=== PATIENT | female | born 1930 | race Caucasian/White ===

== ENCOUNTER 2017-01-06 08:01 | Outpatient (CLI) | payer MEDICARE ==
[2017-01-06 08:49] LABS: #Basophils 0.2 thou/uL (0.0-0.2); #Eosinphils 0.6 thou/uL (0.0-0.7); #Lymphocytes 1.4 thou/uL (1.20-3.40); #Monocytes 0.5 thou/uL (0.11-0.59); #Neutrophils 4.1 thou/uL (1.40-6.50); %Basophils 2.8 % (0.0-1.0); %Eosinophils 9.1 % (0.0-10.0); %Lymphocytes 20.3 % (21.0-51.0); %Monocytes 7.5 % (0.0-10.0); %Neutrophils 60.2 % (42.0-75.0); Hemoglobin 12.9 g/dL (12.0-16.0); Mean Corpuscular HGB CONC 32.6 g/dL (32.0-36.0); Mean Corpuscular Hemoglobin 29.3 pg (27.0-31.0); Mean Platelet Volume 10.3 fL (7.4-10.4); Platelet Count 142 thou/uL (130-400); RBC Distribution Width 12.1 % (11.5-14.5); Red Blood Cell (RBC) Count 4.38 mill/uL (4.20-5.40); White Blood Cell (WBC) Count 6.9 thou/uL (4.8-10.8)
[2017-01-06 09:06] LABS: ALT (SGPT) 18 U/L (8-55); AST (SGOT) 21 U/L (5-34); Albumin 3.9 g/dL (3.4-4.8); Alkaline Phosphatase 47 U/L (40-150); Anion Gap 13 mmol/L (10-20); BUN (Urea Nitrogen) 16 mg/dL (9.8-20.1); Bilirubin, Direct 0.4 mg/dL (0.1-0.3); Bilirubin, Total 1.1 mg/dL (0.2-1.2); Calc. Creatinine Clearance 0 mL/min (70-130); Calcium 9.3 mg/dL (7.8-10.44); Carbon Dioxide 27 mmol/L (23-31); Cardiac Risk 3.3 (Less than 4.5); Chloride 106 mmol/L (98-107); Cholesterol 163 mg/dl (< 200 Desired); Estimated GFR-MDRD 67; Globulin 3.3 g/dL (2.4-3.5); Glucose 96 mg/dL (83-110); HDL Cholesterol 50 mg/dL (>60 Neg Risk); LDL Cholesterol, Calculated 82 mg/dL; Potassium 4.6 mmol/L (3.5-5.1); Protein, Total 7.2 g/dL (6.0-8.3); Sodium 141 mmol/L (136-145); Triglycerides 153 mg/dL (Less than 150)
[2017-01-06 09:43] LABS: Clarity Clear (Clear); pH, Urine 5.5 (5.0-9.0)
[2017-01-06 09:44] LABS: Bacteria/HPF Rare-Few HPF (None Seen); Bilirubin Negative (Negative); Blood, Urine Trace (Negative); Glucose, Urine (Dipstick) Negative (Negative); Leukocyte Trace (Negative); Nitrite Negative (Negative); Protein, Urine (Dipstick) Negative (Neg-Trace); RBC/HPF 0-3 HPF (0-3); Squamous Epithelial 0-3 HPF (0-3); Urobilinogen 0.2 mg/dL (0.2-1.0); WBC/HPF 0-3 HPF (0-3)
== END 2017-01-06 08:02 | disposition home or self-care (01) ==
LOC: MADLABBHPM 08:01
PROVIDERS: ATTEND Family Medicine
DX: I25.10 Atherosclerotic heart disease of native coronary artery without angina pectoris (principal); E78.5 Hyperlipidemia, unspecified; E03.9 Hypothyroidism, unspecified; I10 Essential (primary) hypertension
CPT/HCPCS: 36415; 80053; 80061; 80076; 81001; 84443; 85025

== ENCOUNTER 2017-01-28 13:35 | Outpatient (CLI) | payer MEDICARE ==
--- NOTE | 2017-01-28 15:58 | RAD ---
RADIOGRAPH CHEST 2 VIEWS: Date: 01-28-17 Time: 1:34 p.m. HISTORY: 86-year-old female with dyspnea. COMPARISON: 08-05-16 FINDINGS: There is somewhat severe bilateral hyperinflation consistent with COPD. There is a prosthetic aortic valve. There are sternotomy wires. No pleural effusion or pneumothorax. Irregular, chronic soft tis debby density capping the apex of the right lung with broad base against the right apical pleural surf efrain. Interstitial densities have now developed at the bilateral lower lung zones. In some areas, the se are confluent into airspace densities. No cardiomegaly. Milder left apical pleural thickening. IMPRESSION: 1. New bilateral mixed interstitial and alveolar (mostly interstitial) infiltrates in the bilateral lower lung zones. CT may be useful for further evaluation. 2. Emphysema. 3. Prosthetic aortic valve. [facility] POS: [facility]
== END 2017-01-28 13:36 | disposition home or self-care (01) ==
LOC: MADRAD 13:35
PROVIDERS: ATTEND Family Medicine
DX: R06.02 Shortness of breath (principal); J43.9 Emphysema, unspecified; Z95.2 Presence of prosthetic heart valve
CPT/HCPCS: 71020

== ENCOUNTER 2017-01-28 15:27 | Inpatient (IN) | payer MEDICARE ==
[~2017-01-28 15:27] MED LIST: Sodium Chloride 0.9% 1,000 ML BAG ONE
[2017-01-28 15:58] VITALS: BMI 20.9
[2017-01-28] MEDS: Sodium Chloride 0.9% 1,000 ML IV SCH (16:14)
[2017-01-28] MEDS: cefTRIAXone\\ROCEPHIN 1 GM in Sodium Chloride 0.9% 100 ML IVPB SCH (16:15)
[2017-01-28] MEDS ORDERED: Acetaminophen 325 MG TAB PO PRN (17:33)
[2017-01-28 17:38] LABS: ALT (SGPT) 127 U/L (8-55); AST (SGOT) 138 U/L (5-34); Alkaline Phosphatase 95 U/L (40-150); Anion Gap 16 mmol/L (10-20); BUN (Urea Nitrogen) 29 mg/dL (9.8-20.1); Bilirubin, Total 0.7 mg/dL (0.2-1.2); Calc. Creatinine Clearance 44 mL/min (70-130); Calcium 8.9 mg/dL (7.8-10.44); Carbon Dioxide 22 mmol/L (23-31); Chloride 102 mmol/L (98-107); Estimated GFR-MDRD 65; Glucose 111 mg/dL (83-110); Potassium 3.7 mmol/L (3.5-5.1); Sodium 136 mmol/L (136-145)
[2017-01-28] MEDS: Enoxaparin Sodium 30 MG/0.3 ML SYRINGE SC SCH (18:05)
[2017-01-28 18:25] LABS: Band 4 % (5-11); Hemoglobin 11.1 g/dL (12.0-16.0); Lymphocytes 9 % (21-51); MDiff Complete? YES; Mean Corpuscular HGB CONC 32.5 g/dL (32.0-36.0); Mean Corpuscular Hemoglobin 28.7 pg (27.0-31.0); Mean Corpuscular Volume 88.5 fl (81.0-99.0); Mean Platelet Volume 8.6 fL (7.4-10.4); Monocytes 7 % (0-10); Neutrophil 80 % (42-75); PLT Morphology Comment Appears Adequate; Platelet Count 187 thou/uL (130-400); RBC Distribution Width 12.4 % (11.5-14.5); Red Blood Cell (RBC) Count 3.87 mill/uL (4.20-5.40); White Blood Cell (WBC) Count 13.9 thou/uL (4.8-10.8)
[2017-01-28] MEDS: guaiFENesin ER 600 MG TAB PO SCH (20:29)
[2017-01-28] MEDS: Montelukast Sodium 10 mg Tablet PO SCH (20:29)
[2017-01-28] MEDS: Metoprolol Tartrate 50 MG TAB PO SCH (20:29)
--- NOTE | 2017-01-29 01:30 | HP ---
CHIEF COMPLAINT: Short of breath. HISTORY OF PRESENT ILLNESS: The patient is an 86-year-old white female who has a history of hyperte nsion, asthma, aortic stenosis, for which she underwent a prosthetic valve replacement in 2012. She also has coronary artery disease that is very mild found on heart cath in July 2012 for which s he is asymptomatic. She also has hypothyroidism. The patient presented to my office on the day of admission with her son, Nimesh, complaining that she h ad been sick for the last 5 days. She had developed a lot of head congestion and cough productive o f brownish sputum. She felt short of breath particularly with activity. Her family took her to see Ears, Nose and Throat doctor because they thought she look sick. She was not running fever, but wa s found to have a lot of head congestion and Dr. Tapia, Ears, Nose and Throat physician felt she has a bad sinus infection. He started her on Omnicef twice today for 10 days. She told her chest was clear, but he encouraged her to use her inhaler for asthma. Since that time, the patient has not go t any better other than the head congestion is a little better. She states that she still feels con gested and her cough is still spitting up, some brown discolor phlegm until short of breath particul isauro with any exertion, but also she states she feels a little short of breath just sitting still. She eventually can get comfortable lying down. She thinks she might have a little low-grade fever. PAST MEDICAL HISTORY: The patient has hypertension, hyperlipidemia, hypothyroidism, severe aortic s tenosis for which she underwent a bioprosthetic valve replacement on 07/27/2012 and since then she h as done very well. Her last echocardiogram on 11/10/2015 showed an ejection fraction of 60%-65%. T he patient also has very mild coronary artery disease, had heart catheterization on 07/23/2012. She was found to have very mild plaquing nonstenotic in the distal LAD. The patient has hypothyroidism , asthma, and osteoporosis with evidence of kyphosis in her thoracic spine and loss of height. The patient has been treated with past for gout. She is a 2, para 2. She has been anemic and r equired transfusion in 2012. The patient has had a ERIC-BSO in . She has had breast biopsies i n the past that have been negative. The patient has a colonoscopy in 1994, has had nasal polyp roxana lyndon. She has tonsillectomy and adenoidectomy. The patient had EGD with biopsy and sigmoidoscopy in 1997 negative. The patient had some mild sinus tachycardia which she has been treated with metopro lol. PRESENT MEDICATIONS: Lisinopril 20 mg one daily, Singulair 10 mg daily, Xopenex one inhalation ever y 4 hours as needed, aspirin 325 mg daily, metoprolol succinate extended release 50 mg twice today, amlodipine 5 mg daily, levothyroxine 88 mcg daily, and simvastatin 20 mg daily. ALLERGIES: PENICILLIN. The patient has taken cephalosporins in the past without problems. REVIEW OF SYSTEMS: Constitutional: The patient state she thinks she may have has a little fever ov er the last few days. She has not felt good. She has not had her usual energy. Head and neck: Th e patient had some head congestion, it seems to be better. She is breathing better to her nose. Mo uth and throat: No complaints. Cardiovascular: No chest pain. Pulmonary: See present illness. GI: The patient states she has not had much of an appetite. She has not been eating very much. Sh e is drinking very much. : No complaints. ADLS: The patient is independent of all her ADLs and all her instrumental ADLs. HABITS: Alcohol, none. Tobacco, none. SOCIAL HISTORY: The patient is . The patient lives independently. Has family that can assist her if need be. CODE STATUS: FULL CODE. PHYSICAL EXAMINATION: GENERAL: Asthenic built 86-year-old white female who is sitting in a chair, appears dyspneic. VITAL SIGNS: Her temperature is 100.4, pulse 83, respirations 18, O2 saturation 92% on room air, bl ood pressure 119/58, and her weight is 122 pounds. HEENT: Head normocephalic and atraumatic. Eyes, pupils are equal, round, reactive. Ears, TMs are clear. Nose, is pale and edematous. Mouth and throat, there is no erythema. No lesions. No tonsi ls seen. NECK: Carotids are equal and strong. No bruits. Thyroid not enlarged. LUNGS: The patient has moderate breath sounds with expiratory wheeze and rhonchi. Did not hear any rales. HEART: Regular rate, rate is slightly elevated. There was no murmur. ABDOMEN: Nontender. EXTREMITIES: No edema. NEUROLOGIC: The patient is alert, oriented x3 with no focal weakness. BACK: The patient has marked kyphosis. DIAGNOSTIC DATA: Chest x-ray was performed and showed the heart size to be normal. The patient has hyperinflation of her lungs. The patient has evidence of prosthetic aortic valve and there is evid ence of sternotomy wires. There are no pleural effusions or pneumothorax. The patient has extensiv e interstitial scarring and also increased interstitial densities particularly in the lower lobes th at also present on lateral view. IMPRESSION: 1. Bilateral interstitial pneumonia. 2. Asthma with acute exacerbation. 3. Hypertension. 4. Aortic stenosis, severe. A. Status post aortic valve replacement with a prosthetic valve on 07/27/2012. B. Last echocardiogram on 11/10/2015 showed an ejection fraction of 60%-65%. 5. Coronary artery disease. A. Heart cath on 07/23/2012 showed very mild plaque, nonstenotic involving the distal LAD. B. Asymptomatic. 6. Hypothyroidism. 7. History of asthma. 8. Hyperlipidemia. 9. Osteoporosis. A. Complicated by marked kyphotic thoracic spine with loss of height. PLAN: The patient has been admitted to the hospital where she will be placed on supplemental O2. B lood cultures have been obtained and general admission lab work obtained. The patient will be cauti ously hydrated because she has not been eating well or taking fluids well. Start the patient on IV antibiotics using Levaquin and also on Rocephin. Additionally, we will place the patient on methylp rednisolone IV and nebulization treatments with DuoNebs. This patient will be placed on Lovenox for DVT prophylaxis.
[2017-01-29] MEDS: Sodium Chloride 0.9% 1,000 ML IV SCH ×2 (05:15→23:05)
[2017-01-29] MEDS: Levothyroxine Sodium 88 MCG TAB PO SCH (05:16)
[2017-01-29 05:55] LABS: #Basophils 0.1 thou/uL (0.0-0.2); #Lymphocytes 0.4 thou/uL (1.20-3.40); #Monocytes 0.4 thou/uL (0.11-0.59); #Neutrophils 10.2 thou/uL (1.40-6.50); %Basophils 0.6 % (0.0-1.0); %Eosinophils 0.1 % (0.0-10.0); %Lymphocytes 3.9 % (21.0-51.0); %Monocytes 3.8 % (0.0-10.0); %Neutrophils 91.6 % (42.0-75.0); Hemoglobin 10.3 g/dL (12.0-16.0); Mean Corpuscular HGB CONC 33.2 g/dL (32.0-36.0); Mean Corpuscular Hemoglobin 29.4 pg (27.0-31.0); Mean Corpuscular Volume 88.8 fl (81.0-99.0); Mean Platelet Volume 8.7 fL (7.4-10.4); Platelet Count 178 thou/uL (130-400); RBC Distribution Width 12.3 % (11.5-14.5); Red Blood Cell (RBC) Count 3.48 mill/uL (4.20-5.40); White Blood Cell (WBC) Count 11.2 thou/uL (4.8-10.8)
[2017-01-29 06:00] LABS: Anion Gap 13 mmol/L (10-20); BUN (Urea Nitrogen) 24 mg/dL (9.8-20.1); Calc. Creatinine Clearance 50 mL/min (70-130); Calcium 8.6 mg/dL (7.8-10.44); Carbon Dioxide 22 mmol/L (23-31); Chloride 105 mmol/L (98-107); Estimated GFR-MDRD 76; Glucose 151 mg/dL (83-110); Potassium 3.8 mmol/L (3.5-5.1); Sodium 136 mmol/L (136-145)
[2017-01-29] MEDS ORDERED: Calcium Carbonate 500 MG ChewTAB PO PRN (08:11)
--- NOTE | 2017-01-29 08:49 | HP ---
SUBJECTIVE: The patient said she feels much better today. Her breathing is better. Her cough is l ess. She said she feels remarkably better. The patient said she rested well. She is having a graham le indigestion. Yesterday, she was started on pantoprazole at home. She says she occasionally take s at home. OBJECTIVE: GENERAL: The patient is lying in bed with the head elevated. She looks very comfortable. The dysp yobani that was present at rest yesterday has resolved. She is talkative without getting out of breath . VITAL SIGNS: Shows a temperature of 98, pulse 99, respirations 18. Her O2 sats 98% on 2 liters, bl ood pressure 123/59. Her weight is 122. LUNGS: Have excellent breath sounds. Lungs are clear except for an occasional very slight expirato ry wheeze heard over the right posterior chest. There were no rales present and rhonchi have resolv ed. HEART: Regular rate. EXTREMITIES: No edema. LABORATORY DATA: Admission H\T\H are 11.1 and 34.3 with white cell count of 13,900 with 80% segs, 9 % lymphocytes. This morning, H\T\H is 10.3 and 30.9 with a white blood cell count down to 11,200 wi th 92% segs, 4% lymphocytes, and platelet count of 178,000. Her sodium 136, potassium 3.8, BUN 24, creatinine 0.73, GFR 73. FBS 151. On admission, her sodium 136, potassium 3.7. Her BUN was 29, cr eatinine 0.83, GFR 65, glucose 111. Her liver enzymes on admission were little elevated with AST 13 8, ALT of 127, total bilirubin 0.7, alkaline phosphatase 95. TSH was 0.7. ASSESSMENT: 1. Bilateral interstitial pneumonia. A. Improved. 2. Asthma with acute exacerbation, improved with minimal wheezing. 3. Hypertension, controlled. 4. Aortic stenosis, severe. A. Status post aortic valve replacement with prosthetic valve on 07/27/2012. B. Last echocardiogram on 11/10/2015 showed ejection fraction of 60%-65%. 5. Coronary artery disease, a heart catheterization on 07/23/2012 showed very mild plaque nonstenot ic involving the distal LAD. B. Asymptomatic. 6. Hypothyroidism. 7. History of asthma. 8. Hyperlipidemia. 9. Osteoporosis. A. Complicated by marked kyphotic thoracic spine with loss of height. 10. Dehydration. A. Manifest with mild elevation of BUN and creatinine. B. Improved with an improvement in GFR from 65-76 and drop in BUN from 29-24. 11. Abnormal liver function studies, hepatocellular injury. A. Etiology, possibly from the simvastatin and/or the acute illness. PLAN: Overall, the patient looks much better. We will continue her IV steroids, antibiotics and IV fluids. We will advance activities within her capability. Continue the supplemental O2. We will stop the simvastatin and follow the liver function studies. We will add Tums that she uses at home for indigestion.
[2017-01-29] MEDS ORDERED: Simvastatin 20 MG TAB PO SCH (09:00)
[2017-01-29 09:07] LABS: ALT (SGPT) 143 U/L (8-55); AST (SGOT) 129 U/L (5-34); Alkaline Phosphatase 100 U/L (40-150); Anion Gap 17 mmol/L (10-20); BUN (Urea Nitrogen) 24 mg/dL (9.8-20.1); Bilirubin, Total 0.5 mg/dL (0.2-1.2); Calc. Creatinine Clearance 50 mL/min (70-130); Calcium 8.9 mg/dL (7.8-10.44); Carbon Dioxide 20 mmol/L (23-31); Chloride 104 mmol/L (98-107); Estimated GFR-MDRD 75; Glucose 167 mg/dL (83-110); Potassium 3.5 mmol/L (3.5-5.1); Sodium 137 mmol/L (136-145)
[2017-01-29] MEDS: guaiFENesin ER 600 MG TAB PO SCH ×2 (09:28→20:46)
[2017-01-29] MEDS: Lisinopril 10 MG TAB PO SCH (09:29)
[2017-01-29] MEDS: Aspirin 325 mg Enteric Coated Tablet PO SCH (09:29)
[2017-01-29] MEDS: Metoprolol Tartrate 50 MG TAB PO SCH ×2 (09:29→20:46)
[2017-01-29 15:03] LABS: Bilirubin Negative (Negative); Blood, Urine Trace (Negative); Clarity Cloudy (Clear); Glucose, Urine (Dipstick) Negative (Negative); Leukocyte Negative (Negative); Nitrite Negative (Negative); Protein, Urine (Dipstick) 30 mg/dL (Neg-Trace); Specific Gravity, Urine 1.025 (1.005-1.030); Urobilinogen 0.2 mg/dL (0.2-1.0); pH, Urine 5.5 (5.0-9.0)
[2017-01-29 15:04] LABS: Bacteria/HPF Rare-Few HPF (None Seen); Crystals/HPF 4+ AMORPH URATES HPF (Negative); RBC/HPF 0-3 HPF (0-3); Squamous Epithelial 0-3 HPF (0-3); WBC/HPF None Seen HPF (0-3)
[2017-01-29] MEDS: cefTRIAXone\\ROCEPHIN 1 GM in Sodium Chloride 0.9% 100 ML IVPB SCH (15:37)
[2017-01-29] MEDS ORDERED: Sodium Chloride 0.9% 1,000 ML BAG ONE (17:00)
[2017-01-29] MEDS: Enoxaparin Sodium 30 MG/0.3 ML SYRINGE SC SCH (18:12)
[2017-01-29] MEDS: Montelukast Sodium 10 mg Tablet PO SCH (20:46)
[2017-01-30 05:33] LABS: #Basophils 0.1 thou/uL (0.0-0.2); #Lymphocytes 0.5 thou/uL (1.20-3.40); #Monocytes 0.8 thou/uL (0.11-0.59); #Neutrophils 15.3 thou/uL (1.40-6.50); %Basophils 0.3 % (0.0-1.0); %Monocytes 4.6 % (0.0-10.0); Hemoglobin 10.5 g/dL (12.0-16.0); INR-International Normal Ratio 1.2; Mean Corpuscular Volume 88.6 fl (81.0-99.0); Mean Platelet Volume 8.5 fL (7.4-10.4); Platelet Count 212 thou/uL (130-400); Prothrombin Time 15.7 SEC (12.0-14.7); RBC Distribution Width 12.3 % (11.5-14.5); Red Blood Cell (RBC) Count 3.38 mill/uL (4.20-5.40); White Blood Cell (WBC) Count 16.6 thou/uL (4.8-10.8)
[2017-01-30] MEDS: Levothyroxine Sodium 88 MCG TAB PO SCH (06:08)
[2017-01-30] MEDS: Lisinopril 10 MG TAB PO SCH (08:31)
[2017-01-30] MEDS: guaiFENesin ER 600 MG TAB PO SCH ×2 (08:31→20:35)
[2017-01-30] MEDS: Metoprolol Tartrate 50 MG TAB PO SCH ×2 (08:32→20:35)
[2017-01-30] MEDS: Sodium Chloride 0.9% 1,000 ML IV SCH ×3 (08:32→17:57)
[2017-01-30] MEDS: Aspirin 325 mg Enteric Coated Tablet PO SCH (08:32)
--- NOTE | 2017-01-30 08:37 | PRG ---
DATE OF SERVICE: 01/30/2017 SUBJECTIVE: The patient said she slept good last night. She is feeling better. She said yesterday she was still having just a little wheezing. She did sit up for a while. She said she is still we ak and just going to the bathroom exhausts her. OBJECTIVE: The patient is sitting up in bed. She is alert, looks very comfortable and in no distre ss. Her vital signs show a temperature of 97.8, pulse is 89, respirations are 20, O2 sat 97% on 2 l iters, blood pressure 121/59. Her output, the patient is at 1025 mL of urine output over the last 2 4 hours. Her lungs, the patient has good breath sounds. The patient has an occasional very slight wheeze on forced expiration and there are some rhonchi over the right posterior chest, these are min imal. Overall, the chest is sounding better. Heart, regular rate. Extremities: No edema. Lab shows an H\T\H of 10.5 and 29.9, white cell count 16,600 with 92% segs, 212,000 platelets, incre ased leukocytosis, probably secondary to the effect of the steroids. The sodium 137, potassium 3.5, glucose 167, BUN 24, creatinine 0.75, AST 129, ALT 143, total bilirubin 0.5, alkaline phosphatase 1 00. ASSESSMENT: 1. Bilateral interstitial pneumonia. A. Improved. 2. Asthma with acute exacerbation. A. Improving, but still some wheezes or rhonchi on expiration. 3. Hypertension, controlled. 4. Aortic stenosis, severe. A. Status post aortic valve replacement with prosthetic valve on 07/27/2012. B. Last echocardiogram on 11/10/2015 showed ejection fraction 60-65%. 5. Coronary artery disease. A. Heart catheterization on 07/23/2012 showed very mild plaque that is nonstenotic involving the dis renato LAD. B. Asymptomatic. 6. Hypothyroidism. 7. History of asthma. 8. Hyperlipidemia. 9. Osteoporosis. A. Complicated by marked kyphotic thoracic spine with loss of height. 10. Dehydration. A. Improved. 11. Abnormal liver function studies, hepatocellular injury. A. Suspect related to the simvastatin and/or acute illness, stable. 12. Generalized weakness. PLAN: Will reduce the patient's fluids to 50 mL per hour. Continue the IV steroids. Will have Phy sical Therapy begin working with her.
[2017-01-30 09:09] LABS: Chloride 104 mmol/L (98-107); Sodium 133 mmol/L (136-145)
[2017-01-30 09:39] LABS: ALT (SGPT) 193 U/L (8-55); AST (SGOT) 158 U/L (5-34); Albumin 2.7 g/dL (3.4-4.8); Alkaline Phosphatase 84 U/L (40-150); Anion Gap 14 mmol/L (10-20); BUN (Urea Nitrogen) 22 mg/dL (9.8-20.1); Bilirubin, Total Less than 0.3 mg/dL (0.2-1.2); Calc. Creatinine Clearance 51 mL/min (70-130); Calcium 7.7 mg/dL (7.8-10.44); Carbon Dioxide 21 mmol/L (23-31); Estimated GFR-MDRD 77; Globulin 2.6 g/dL (2.4-3.5); Glucose 150 mg/dL (83-110); Protein, Total 5.3 g/dL (6.0-8.3)
[2017-01-30] MEDS: cefTRIAXone\\ROCEPHIN 1 GM in Sodium Chloride 0.9% 100 ML IVPB SCH (15:37)
[2017-01-30] MEDS: Potassium Chloride 10 MEQ TAB PO SCH (17:04)
[2017-01-30] MEDS: Enoxaparin Sodium 30 MG/0.3 ML SYRINGE SC SCH (18:02)
[2017-01-30] MEDS: Montelukast Sodium 10 mg Tablet PO SCH (20:35)
[2017-01-31] MEDS: Levothyroxine Sodium 88 MCG TAB PO SCH (05:17)
[2017-01-31 05:22] LABS: #Basophils 0.2 thou/uL (0.0-0.2); #Lymphocytes 0.8 thou/uL (1.20-3.40); #Monocytes 0.6 thou/uL (0.11-0.59); #Neutrophils 14.5 thou/uL (1.40-6.50); %Lymphocytes 4.8 % (21.0-51.0); %Monocytes 3.7 % (0.0-10.0); %Neutrophils 90.6 % (42.0-75.0); Hemoglobin 10.3 g/dL (12.0-16.0); Mean Corpuscular HGB CONC 32.8 g/dL (32.0-36.0); Mean Corpuscular Hemoglobin 29.5 pg (27.0-31.0); Mean Corpuscular Volume 89.7 fl (81.0-99.0); Mean Platelet Volume 8.2 fL (7.4-10.4); Platelet Count 247 thou/uL (130-400); RBC Distribution Width 12.8 % (11.5-14.5)
[2017-01-31] MEDS: Potassium Chloride 10 MEQ TAB PO SCH (08:02)
--- NOTE | 2017-01-31 08:45 | PRG ---
DATE OF SERVICE: 01/31/2017 SUBJECTIVE: The patient said she feels much better today. She is not having any trouble with her b reathing. Her cough is minimal. She still has a little sputum production, but this is lightening u p. She slept very good last night. She walked further and seemed to do better and was not out of b reath with walking. OBJECTIVE: GENERAL APPEARANCE: The patient is sitting up in bed. She is alert and looks to be very comfortabl e and in no distress. VITAL SIGNS: Her blood pressure is 121/61, O2 sat 97% on 2 liters, respirations 18, pulse 96, tempe rature 97.7. LUNGS: Have excellent breath sounds. There were no rales. There are no rhonchi. On occasion, the re is a very slight short wheeze that is present, but this is only intermittent. Overall, the lungs are clear. HEART: Regular rate. LABORATORY DATA: Shows H\T\H of 10.3 and 31.4, white cell count 16,000, 91% segs, 5% lymphocytes, a nd platelet count of 247,000. Her sodium is 133, potassium 4. Her BUN 22, creatinine 0.72. Her gl ucose is 150. AST is 158 and ALT 193. Total bilirubin less than 0.3, alkaline phosphatase 84, albu min 2.7. Her blood cultures have no growth x2. ASSESSMENT: 1. Bilateral interstitial pneumonia. A. Continued improvement. 2. Asthma with acute exacerbation, improving. 3. Hypertension. 4. Aortic stenosis, severe. A. Status post aortic valve replacement with prosthetic valve on 07/27/2012. B. Last echocardiogram on 11/10/2015 showed an ejection fraction of 60%-65%. 5. Coronary artery disease. A. Heart catheterization on 07/23/2012 showed very mild plaque that was stenotic involving the dist al LAD. B. Asymptomatic. 6. Hypothyroidism. 7. History of asthma. 8. Hyperlipidemia. 9. Osteoporosis. A. Complicated by marked kyphotic thoracic spine with loss of height. 10. Dehydration. A. Resolved. 11. Abnormal liver function studies from hepatocellular injury. Suspect from the initial infection that is stable, statin could also be a contributor. 12. Generalized weakness. PLAN: We will discontinue the IV fluids. We will discontinue potassium supplementation. Continue physical therapy and continue the IV antibiotics. We will discontinue the methylprednisolone IV and place her on oral steroids.
[2017-01-31 08:55] LABS: Anion Gap 10 mmol/L (10-20)
[2017-01-31 09:10] LABS: BUN (Urea Nitrogen) 25 mg/dL (9.8-20.1); Calc. Creatinine Clearance 49 mL/min (70-130); Carbon Dioxide 25 mmol/L (23-31); Chloride 108 mmol/L (98-107); Potassium 4.2 mmol/L (3.5-5.1); Sodium 139 mmol/L (136-145)
[2017-01-31 09:11] LABS: ALT (SGPT) 157 U/L (8-55); AST (SGOT) 77 U/L (5-34); Albumin 2.7 g/dL (3.4-4.8); Alkaline Phosphatase 78 U/L (40-150); Bilirubin, Total 0.3 mg/dL (0.2-1.2); Calcium 8.5 mg/dL (7.8-10.44); Estimated GFR-MDRD 74; Globulin 3.2 g/dL (2.4-3.5); Glucose 109 mg/dL (83-110); Protein, Total 5.9 g/dL (5.8-8.1)
[2017-01-31] MEDS: Aspirin 325 mg Enteric Coated Tablet PO SCH (09:19)
[2017-01-31] MEDS: guaiFENesin ER 600 MG TAB PO SCH ×2 (09:19→20:54)
[2017-01-31] MEDS: Lisinopril 10 MG TAB PO SCH (09:20)
[2017-01-31] MEDS: Metoprolol Tartrate 50 MG TAB PO SCH ×2 (09:20→20:53)
[2017-01-31] MEDS: cefTRIAXone\\ROCEPHIN 1 GM in Sodium Chloride 0.9% 100 ML IVPB SCH (15:48)
[2017-01-31] MEDS: Enoxaparin Sodium 30 MG/0.3 ML SYRINGE SC SCH (18:01)
[2017-01-31] MEDS: Montelukast Sodium 10 mg Tablet PO SCH (20:53)
[2017-02-01 05:22] LABS: Hemoglobin 10.4 g/dL (12.0-16.0); Mean Corpuscular HGB CONC 32.7 g/dL (32.0-36.0); Mean Corpuscular Hemoglobin 29.1 pg (27.0-31.0); Mean Corpuscular Volume 88.8 fl (81.0-99.0); Mean Platelet Volume 7.7 fL (7.4-10.4); Platelet Count 197 thou/uL (130-400); RBC Distribution Width 12.3 % (11.5-14.5); Red Blood Cell (RBC) Count 3.59 mill/uL (4.20-5.40); White Blood Cell (WBC) Count 11.9 thou/uL (4.8-10.8)
[2017-02-01 05:26] LABS: %Eosinophils 0.5 % (0.0-10.0); %Lymphocytes 10.8 % (21.0-51.0); %Monocytes 6.7 % (0.0-10.0); %Neutrophils 80.2 % (42.0-75.0)
[2017-02-01 05:27] LABS: #Basophils 0.2 thou/uL (0.0-0.2); #Eosinphils 0.1 thou/uL (0.0-0.7); #Monocytes 0.8 thou/uL (0.11-0.59); #Neutrophils 9.5 thou/uL (1.40-6.50); %Basophils 1.8 % (0.0-1.0); Anisocytosis SLIGHT = 6-15 cells (100X) (0-5/hpf); Band 4 % (5-11); Eosinophils 3 % (0-10); Hypochromia SLIGHT = 6-15 cells (100X) (0-5/hpf); Lymphocytes 17 % (21-51); Monocytes 8 % (0-10); Neutrophil 68 % (42-75); Poikilocytosis SLIGHT = 6-15 cells (100X) (0-5/hpf)
[2017-02-01 05:28] LABS: PLT Morphology Comment Appears Adequate
[2017-02-01 05:29] LABS: MDiff Complete? YES; Manual Diff?? YES
[2017-02-01] MEDS: Levothyroxine Sodium 88 MCG TAB PO SCH (06:19)
[2017-02-01] MEDS ORDERED: predniSONE 20 MG TAB PO SCH (08:00)
[2017-02-01] MEDS: guaiFENesin ER 600 MG TAB PO SCH (08:49)
[2017-02-01] MEDS: Lisinopril 10 MG TAB PO SCH (08:49)
[2017-02-01] MEDS: Aspirin 325 mg Enteric Coated Tablet PO SCH (08:49)
[2017-02-01] MEDS: Metoprolol Tartrate 50 MG TAB PO SCH (08:50)
[2017-02-01 08:51] VITALS: BP 129/60; TEMP 98.1
--- NOTE | 2017-02-01 11:40 | PRG ---
DATE OF SERVICE: 02/01/2017 SUBJECTIVE: The patient says she feels so much better. She walked yesterday with therapy a little further. She said she has been going with her options yesterday some and also this morning. She sa id she is not coughing like she was. She has been up going to the bathroom and has not been short o f breath like she had been. Overall, she feels better. OBJECTIVE: GENERAL: The patient is sitting up in a chair, looks comfortable, in no distress. VITAL SIGNS: Temperature 98.1, pulse 97, blood pressure 121/61, respirations 18, O2 sat on room air 92%. Earlier was 95% on room air. LUNGS: Her lungs were clear except for some mild rhonchi over the right posterior base. There are excellent breath sounds. I did not hear any wheezes. Heart, regular rate. EXTREMITIES: No edema. LABORATORY DATA: Shows an H and H of 10.4 and 31.9, white cell count down to 11,900 with 68% segs, 17% lymphocytes, and a platelet count of 197,000. Her comprehensive metabolic panel from 01/31/2017 showed sodium 139, potassium 4.2, BUN 25, creatinine 0.75. The AST has dropped from a high of 158 to 77, ALT has dropped from 193 to 157. Blood cultures no growth x2. ASSESSMENT: 1. Bilateral interstitial pneumonia. A. Continued improvement. 2. Asthma with acute exacerbation, improving. 3. Hypertension, controlled. 4. Aortic stenosis, severe. A. Status post aortic valve replacement with prosthetic valve on 07/27/2012. B. Last echocardiogram on 11/10/2015 showed ejection fraction of 60 to 65%. 5. Coronary artery disease. A. Heart catheterization on 07/23/2012 showed very mild plaque that was nonstenotic involving the d istal left anterior descending. B. Asymptomatic. 6. Hypothyroidism. 7. History of asthma. 8. Hyperlipidemia. 9. Osteoporosis. A. Complicated by marked kyphotic thoracic spine with loss of height. 10. Dehydration, resolved. 11. Abnormal liver function studies from hepatocellular injury. A. Etiology probably secondary to the acute illness and the effect of the statin drugs. B. Improved. 12. Generalized weakness, gradually improving. PLAN: Overall, the patient continues to improve. We will move patient to Extended Care for continu ation of IV antibiotics for another couple of days and then we will shift to oral antibiotics. Phys ical therapy will work with her in extended care to help improve her general strength and functional capability.
[2017-02-01 15:57] LABS: HBSAg Index 0.22 S/CO (0-0.99); Hep A IgM AB Non-Reactive (NonReactive); Hep A IgM S/CO 0.15 S/CO (0-0.79); Hep B Surf Ag Non-Reactive S/CO (NonReactive); Hep C IgG Ab Non-Reactive (NonReactive); Hep C Index 0.24 S/CO (0-0.79); Hepatitis B Core IGM Abs Non-Reactive (NonReactive)
== END 2017-02-01 10:51 | DRG 197 ==
LOC: MADMS 15:27
PROVIDERS: ADMIT Family Medicine; ATTEND Family Medicine
DX: J84.9 Interstitial pulmonary disease, unspecified (principal); J45.901 Unspecified asthma with (acute) exacerbation; I35.0 Nonrheumatic aortic (valve) stenosis; E86.0 Dehydration; Z95.2 Presence of prosthetic heart valve; I25.10 Atherosclerotic heart disease of native coronary artery without angina pectoris; E03.9 Hypothyroidism, unspecified; E78.5 Hyperlipidemia, unspecified; I10 Essential (primary) hypertension; M81.0 Age-related osteoporosis without current pathological fracture; M40.294 Other kyphosis, thoracic region; R94.5 Abnormal results of liver function studies
CPT/HCPCS: 36415; 71020; 80048; 80053; 80074; 81001; 84443; 85025; 85610; 87040; 94640; G8978-GP-CJ; G8979-GP-CI; J0696; J1650; J1956; J2920; J7050; J7506; J7620

== ENCOUNTER 2017-02-01 10:44 | Inpatient (IN) | payer MEDICARE ==
[2017-02-01] MEDS ORDERED: Calcium Carbonate 500 MG ChewTAB PO PRN (11:02)
[2017-02-01] MEDS ORDERED: Acetaminophen 325 MG TAB PO PRN (11:02)
[2017-02-01 11:16] VITALS: BMI 20.9
[2017-02-01] MEDS: cefTRIAXone\\ROCEPHIN 1 GM in Sodium Chloride 0.9% 100 ML IVPB SCH (15:20)
[2017-02-01] MEDS ORDERED: cefTRIAXone\\ROCEPHIN 1 GM VIAL IVPB SCH (16:00)
[2017-02-01] MEDS ORDERED: Levofloxacin 500 mg/D5W 100 ml Premix Bag IVPB SCH (18:00)
[2017-02-01] MEDS: Enoxaparin Sodium 30 MG/0.3 ML SYRINGE SC SCH (18:01)
[2017-02-01] MEDS: guaiFENesin ER 600 MG TAB PO SCH (20:36)
[2017-02-01] MEDS: Metoprolol Tartrate 50 MG TAB PO SCH (20:37)
[2017-02-01] MEDS: Montelukast Sodium 10 mg Tablet PO SCH (20:37)
[2017-02-02] MEDS: Levothyroxine Sodium 88 MCG TAB PO SCH (08:44)
[2017-02-02] MEDS: predniSONE 20 MG TAB PO SCH (08:45)
[2017-02-02] MEDS: Aspirin 325 mg Enteric Coated Tablet PO SCH (08:46)
[2017-02-02] MEDS: guaiFENesin ER 600 MG TAB PO SCH ×2 (08:46→20:39)
[2017-02-02] MEDS: Lisinopril 10 MG TAB PO SCH (08:46)
[2017-02-02] MEDS: Metoprolol Tartrate 50 MG TAB PO SCH ×2 (08:46→20:39)
--- NOTE | 2017-02-02 10:40 | PRG ---
DATE OF SERVICE: 02/02/2017 SUBJECTIVE: The patient said she feels a lot better today. She has been up walking around without oxygen and able to do more and feeling more like herself. She said her cough is much better. She s till is spitting up just a minimal amount of phlegm that is clearing in color. OBJECTIVE: GENERAL: The patient is sitting in a chair. She is alert, appears very comfortable and in no distr ess. VITAL SIGNS: Her T-max last night was 99.1; pulse 82-92, blood pressure 167/72, earlier 121/60, res pirations 18, and O2 sat 94% on room air. LUNGS: The patient has some mild expiratory rhonchi over the right posterior chest, otherwise chest clear. HEART: Regular rate. EXTREMITIES: No edema. ASSESSMENT: 1. Bilateral interstitial pneumonia. A. Continued improvement. 2. Asthma with acute exacerbation. A. Improving with no wheezes. 3. Hypertension, controlled. 4. Aortic stenosis, severe. A. Status post aortic valve replacement with prosthetic valve on 07/27/2012. B. Last echocardiogram on 11/10/2015 showed ejection fraction of 60-65%. 5. Coronary artery disease. A. Heart catheterization on 07/23/2012 showed very mild plaque that was nonstenotic involving the d istal left anterior descending. B. Asymptomatic. 6. Hypothyroidism. 7. History of asthma. 8. Hyperlipidemia. 9. Osteoporosis. A. Complicated by marked kyphotic thoracic spine with loss of height. 10. Dehydration, resolved. 11. Abnormal liver function studies from hepatocellular injury. A. Etiology secondary to the acute illness and the effect of the statin drugs. B. Improved. 12. Generalized weakness, improved. PLAN: Continue present care. Continue physical therapy.
--- NOTE | 2017-02-02 11:58 | RAD ---
TWO VIEW CHEST: HISTORY: Followup pneumonia. COMPARISON: 01/28/17. FINDINGS: Opacification in the right apex is again seen and is unchanged. Small bilateral effusions, slightly larger on the left. Interstitial and patchy alveolar changes in the left lung base again noted, although findings appear improved from 01/28/17. Mild vascular engo rgement is again noted. Mild cardiomegaly with postop sternotomy change. The bilateral apical find ings are stable when compared to a film dated July 2016. IMPRESSION: 1. Evidence of improvement in the lung solis when compared to 01/28/17. Interstitial prominence is less pronounced, probably representing some improvement in interstitial edema. There continue to b e some interstitial and alveolar changes in the left lung base which may represent resolving inflamm atory process. Bilateral effusions, slightly larger on the left noted. The left effusion has incre ased since the prior study. 2. Right apical opacification is unchanged in appearance. Left apical pleural thickening is also n oted but to a lesser degree. POS: [facility]
[2017-02-02] MEDS: cefTRIAXone\\ROCEPHIN 1 GM in Sodium Chloride 0.9% 100 ML IVPB SCH (16:18)
[2017-02-02] MEDS: Enoxaparin Sodium 30 MG/0.3 ML SYRINGE SC SCH (17:14)
[2017-02-02] MEDS: Montelukast Sodium 10 mg Tablet PO SCH (20:39)
[2017-02-03 05:51] LABS: #Basophils 0.1 thou/uL (0.0-0.2); #Eosinphils 0.2 thou/uL (0.0-0.7); #Lymphocytes 1.5 thou/uL (1.20-3.40); #Monocytes 0.6 thou/uL (0.11-0.59); #Neutrophils 9.6 thou/uL (1.40-6.50); %Basophils 0.8 % (0.0-1.0); %Eosinophils 1.4 % (0.0-10.0); %Lymphocytes 12.9 % (21.0-51.0); %Monocytes 4.8 % (0.0-10.0); %Neutrophils 80.1 % (42.0-75.0); Hemoglobin 10.9 g/dL (12.0-16.0); Mean Corpuscular HGB CONC 33.3 g/dL (32.0-36.0); Mean Corpuscular Hemoglobin 29.5 pg (27.0-31.0); Mean Corpuscular Volume 88.6 fl (81.0-99.0); Mean Platelet Volume 7.7 fL (7.4-10.4); Platelet Count 238 thou/uL (130-400); RBC Distribution Width 12.3 % (11.5-14.5); Red Blood Cell (RBC) Count 3.68 mill/uL (4.20-5.40)
[2017-02-03 06:00] LABS: ALT (SGPT) 78 U/L (8-55); AST (SGOT) 32 U/L (5-34); Albumin 2.8 g/dL (3.4-4.8); Alkaline Phosphatase 55 U/L (40-150); Anion Gap 10 mmol/L (10-20); BUN (Urea Nitrogen) 16 mg/dL (9.8-20.1); Bilirubin, Total 0.6 mg/dL (0.2-1.2); Calc. Creatinine Clearance 51 mL/min (70-130); Calcium 8.3 mg/dL (7.8-10.44); Carbon Dioxide 31 mmol/L (23-31); Chloride 102 mmol/L (98-107); Estimated GFR-MDRD 77; Globulin 2.8 g/dL (2.4-3.5); Glucose 91 mg/dL (83-110); Potassium 3.7 mmol/L (3.5-5.1); Protein, Total 5.6 g/dL (6.0-8.3); Sodium 139 mmol/L (136-145)
[2017-02-03] MEDS: guaiFENesin ER 600 MG TAB PO SCH ×2 (08:57→21:11)
[2017-02-03] MEDS: predniSONE 20 MG TAB PO SCH (08:57)
[2017-02-03] MEDS: Levothyroxine Sodium 88 MCG TAB PO SCH (08:57)
[2017-02-03] MEDS: Metoprolol Tartrate 50 MG TAB PO SCH ×2 (08:58→21:12)
[2017-02-03] MEDS: Aspirin 325 mg Enteric Coated Tablet PO SCH (08:58)
[2017-02-03] MEDS: Lisinopril 10 MG TAB PO SCH (08:58)
[2017-02-03] MEDS ORDERED: predniSONE 20 MG TAB PO SCH (09:53)
--- NOTE | 2017-02-03 10:31 | PRG ---
DATE OF SERVICE: 02/03/2017 SUBJECTIVE: The patient says she feels a lot better today. Her breathing is better. She is walkin g a little further. She is not coughing. OBJECTIVE: The patient is sitting up in a bedside chair, alert, appears comfortable in no distress. Her temperature 98.1, pulse 88, blood pressure 145/67, respirations 20, O2 sat 96% on room air. H er weight is 122. Her lungs are clear. Heart, regular rate. The chest x-ray shows mild cardiomega ly. The patient has improvement in the basilar infiltrates. There are bilateral pleural effusions, a little more on the left than the right and chronic interstitial changes are present at the apex a nd interstitial markings at the bases looks better. There remains some interstitial and alveolar ch anges of the left lung base. Her labs shows an H\T\H of 10.9 and 32.6, white cell count 12,000 with 80% segs, 13% lymphocytes, and a platelet count of 238. Her glucose 91. Sodium 139, potassium 3.7 , BUN 16, creatinine 0.72. AST has normalized to 32, ALT down to 78 from a high of 193, normal sally line phosphatase and bilirubin. ASSESSMENT: 1. Bilateral interstitial pneumonia. A. Continued improvement. 2. Asthma with acute exacerbation, resolving. 3. Hypertension, controlled. 4. Aortic stenosis, severe. A. 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 B. Last echocardiogram on 11/10/2015 showed ejection fraction of 60-65%. 5. Coronary artery disease. A. Heart catheterization on 07/23/2012 showed mild plaque that was not stenotic involving the dista l left anterior descending artery. B. Asymptomatic. 6. Hypothyroidism. 7. History of asthma. 8. Hyperlipidemia. 9. Osteoporosis. A. Complicated by marked kyphotic spine with loss of height. 10. Dehydration, resolved. 11. Abnormal liver functions studies secondary to hepatocellular injury. A. Etiology secondary to acute illness and the effect of statin drugs. B. Resolving. 12. Generalized weakness, improved. 13. Bilateral pleural effusions that are small, left greater than right and mild cardiomegaly with some interstitial prominence that has improved. A. Etiology probably secondary to the pneumonia and probably from some diastolic dysfunction. PLAN: Will switch the patient to oral antibiotics with Levaquin. Reduced the prednisone to [address] patient on furosemide 40 mg daily. We will arrange for patient later to be reevaluate d by her ux developer, Dr. Murillo.
[2017-02-03] MEDS: Enoxaparin Sodium 30 MG/0.3 ML SYRINGE SC SCH (18:27)
[2017-02-03] MEDS: Montelukast Sodium 10 mg Tablet PO SCH (21:12)
[2017-02-04 05:34] LABS: Anion Gap 10 mmol/L (10-20); BUN (Urea Nitrogen) 18 mg/dL (9.8-20.1); Calc. Creatinine Clearance 54 mL/min (70-130); Calcium 8.3 mg/dL (7.8-10.44); Carbon Dioxide 29 mmol/L (23-31); Chloride 103 mmol/L (98-107); Estimated GFR-MDRD 82; Glucose 97 mg/dL (83-110); Potassium 4.1 mmol/L (3.5-5.1); Sodium 138 mmol/L (136-145)
[2017-02-04] MEDS: Levothyroxine Sodium 88 MCG TAB PO SCH (08:45)
[2017-02-04] MEDS: Lisinopril 10 MG TAB PO SCH (08:45)
[2017-02-04] MEDS: guaiFENesin ER 600 MG TAB PO SCH ×2 (08:46→20:50)
[2017-02-04] MEDS: Metoprolol Tartrate 50 MG TAB PO SCH ×2 (08:46→20:51)
[2017-02-04] MEDS: Furosemide 40 MG TAB PO SCH (08:46)
[2017-02-04] MEDS: Aspirin 325 mg Enteric Coated Tablet PO SCH (08:47)
[2017-02-04] MEDS: Enoxaparin Sodium 30 MG/0.3 ML SYRINGE SC SCH (18:20)
[2017-02-04] MEDS: Montelukast Sodium 10 mg Tablet PO SCH (20:51)
[2017-02-05] MEDS: Metoprolol Tartrate 50 MG TAB PO SCH (08:59)
[2017-02-05] MEDS: Lisinopril 10 MG TAB PO SCH (08:59)
[2017-02-05] MEDS: Levothyroxine Sodium 88 MCG TAB PO SCH (08:59)
[2017-02-05] MEDS: guaiFENesin ER 600 MG TAB PO SCH (08:59)
[2017-02-05] MEDS: Furosemide 40 MG TAB PO SCH (09:00)
[2017-02-05] MEDS: Aspirin 325 mg Enteric Coated Tablet PO SCH (09:00)
[2017-02-05 09:01] VITALS: BP 156/69
[2017-02-05 09:03] VITALS: TEMP 98.1
--- NOTE | 2017-02-05 09:40 | DIS ---
FINAL DIAGNOSES: 1. Bilateral interstitial pneumonia, clinically resolving. 2. Asthma with acute exacerbation, resolving. 3. Hypertension, controlled. 4. Aortic stenosis, severe. A. 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 B. Last echocardiogram on 11/10/2015 showed ejection fraction of 60-65%. 5. Coronary artery disease. A. Heart catheterization on 07/23/2012, showed mild plaque that was not stenotic involving the dista l LAD. B. Asymptomatic. 6. Hypothyroidism. 7. Hyperlipidemia. 8. Osteoporosis. A. 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 9. Dehydration, resolved. 10. Abnormal liver function studies secondary to hepatocellular injury. A. Etiology secondary to acute illness and possible effect of the statin drugs. B. Resolving. 11. Generalized weakness, improving. 12. Bilateral small pleural effusions, left greater than right, and mild cardiomegaly with some int erstitial prominence. A. Improved. Etiology secondary to the recent pneumonia, IV hydration and possibly some diastolic d ysfunction. REASON FOR ADMISSION: The patient is an 86-year-old white female who has a history of hypertension, asthma, aortic stenosis for which she underwent a bioprosthetic valve replacement in 2012. She has a very mild coronary artery disease with mild nonstenotic plaque found in the distal LAD on heart c atheterization in 07/2012 which is asymptomatic. She also has hypothyroidism. She lives alone and is independent of all her ADLs. The patient presented to my office on the day of admission complain ing that she had been sick for 5 days. She had developed a lot of head congestion and had a product hyun cough with brownish sputum. She felt very weak and achy and was short of breath even her rest. She had been running a little fever. Initial exam, patient was dyspnea at rest. She had expirator y wheezes and rhonchi, and temperature was 100.4, O2 sat 92% on room air, blood pressure 119/58. Th e patient's chest x-ray showed hyperinflation of the lungs, evidence of prosthetic aortic valve. Th ere was no pleural effusion. The patient had extensive interstitial scarring and increased intersti tial densities at both bases, very suggestive of bilateral interstitial infiltrates/pneumonia. The patient was admitted to the hospital with the diagnosis of bilateral interstitial pneumonia, asthma with acute exacerbation and dehydration. HOSPITAL COURSE: The patient was admitted to the hospital. Blood cultures were drawn. The patient was started on supplemental oxygen, Solu-Medrol 40 mg b.i.d., Levaquin 500 mg IV daily and ceftriax one 1 gram IV daily. Over the next several days, the patient made marked improvement, her fever res olved. Her shortness of breath resolved. The wheezing gradually resolved. Her white cell count on admission was 13.9 and went up to 16 probably as a result of the steroids and then gradually droppe d to 12 as she improved. She was shifted to oral prednisone. She was still left very weak and as a consequence Physical Therapy began working with her. The patient was moved to [facility] on 07/2016 for continuation of the IV antibiotics and also for physical therapy. She made excellent pr ogress from there and was able to discontinue her oxygen, her oxygen saturation remained 95% on room air. Her lungs completely cleared. Followup chest x-ray showed marked improvement in the intersti tial infiltrates at the bases. She did have some very small pleural effusions that were not present on admission, the left side a little bit more than the right. There was a little pulmonary vascula r congestion, but this looked better than on admission and borderline cardiomegaly. It is felt that these changes were probably a result of the interstitial pneumonia along with the IV fluids that we re used initially to help with the dehydration and possibly some diastolic dysfunction. The patient was placed on Lasix 40 mg daily. By 02/05/2017 the lungs were clear, she remained afebrile. Her 0 2 saturation was 96%. Her condition had improved such it felt like that she could be discharged sen . Her daughter will be staying with her to help her on her transitioning back to independent [facility]. We will arrange for patient to be seen in followup by her operations administrative assistant, Dr. Murillo since she did h ave some mild fluid in her chest to ensure there was no evidence of any diastolic dysfunction. We w ill continue just a lower dose of Lasix and eventually this will probably be able to be stopped. DISPOSITION: DIET: Regular diet. No added salt. ACTIVITIES: Gradually increase activities as tolerated. MEDICATIONS: Levaquin 500 mg daily x5 days, prednisone 10 mg daily x3 days, then stop. Xopenex 2 p uffs every 4 hours as needed, acetaminophen 325 mg 2 every 4 hours as needed, amlodipine 5 mg daily, aspirin 325 mg daily, Tums 500 mg 2 every 4 hours as needed, furosemide 20 mg daily, levothyroxine 88 mcg daily, lisinopril 20 mg daily, metoprolol 50 mg b.i.d., Singulair 10 mg daily. FOLLOW UP: Arrangements will be made for the patient to be seen by her operations administrative assistant, Dr. Murillo. We will see the patient in followup in my office in 2 weeks with a basic metabolic panel, CBC and chest x-ray. CODE STATUS: Full code.
== END 2017-02-05 11:10 | disposition home or self-care (01) | DRG 197 ==
LOC: MADMS 10:56
PROVIDERS: ADMIT Family Medicine; ATTEND Family Medicine
DX: J84.9 Interstitial pulmonary disease, unspecified (principal); J45.901 Unspecified asthma with (acute) exacerbation; J91.8 Pleural effusion in other conditions classified elsewhere; K71.9 Toxic liver disease, unspecified; I11.9 Hypertensive heart disease without heart failure; I35.0 Nonrheumatic aortic (valve) stenosis; Z95.2 Presence of prosthetic heart valve; I25.10 Atherosclerotic heart disease of native coronary artery without angina pectoris; E03.9 Hypothyroidism, unspecified; E78.5 Hyperlipidemia, unspecified; M81.0 Age-related osteoporosis without current pathological fracture; M40.299 Other kyphosis, site unspecified; T49.0X5D Adverse effect of local antifungal, anti-infective and anti-inflammatory drugs, subsequent encounter
CPT/HCPCS: 36415; 71020; 80048; 80053; 85025; 94640; G8978-GP-CI; G8979-GP-CI; J0696; J1650; J1956; J7050; J7506; J7620

== ENCOUNTER 2017-02-17 13:56 | Outpatient (CLI) | payer MEDICARE ==
[2017-02-17 14:25] LABS: Hemoglobin 11.1 g/dL (12.0-16.0); Mean Corpuscular HGB CONC 31.9 g/dL (32.0-36.0); Mean Corpuscular Hemoglobin 28.3 pg (27.0-31.0); Mean Corpuscular Volume 88.7 fl (81.0-99.0); Mean Platelet Volume 8.5 fL (7.4-10.4); Platelet Count 117 thou/uL (130-400); RBC Distribution Width 13.2 % (11.5-14.5); Red Blood Cell (RBC) Count 3.91 mill/uL (4.20-5.40); White Blood Cell (WBC) Count 6.5 thou/uL (4.8-10.8)
[2017-02-17 14:45] LABS: ALT (SGPT) 17 U/L (8-55); AST (SGOT) 19 U/L (5-34); Albumin 3.5 g/dL (3.4-4.8); Alkaline Phosphatase 57 U/L (40-150); Anion Gap 12 mmol/L (10-20); BUN (Urea Nitrogen) 16 mg/dL (9.8-20.1); Bilirubin, Total 1.2 mg/dL (0.2-1.2); Calc. Creatinine Clearance 0 mL/min (70-130); Calcium 8.7 mg/dL (7.8-10.44); Carbon Dioxide 24 mmol/L (23-31); Chloride 106 mmol/L (98-107); Estimated GFR-MDRD 76; Glucose 90 mg/dL (83-110); Protein, Total 6.5 g/dL (6.0-8.3); Sodium 138 mmol/L (136-145)
--- NOTE | 2017-02-17 18:13 | RAD ---
CHEST PA AND LATERAL: HISTORY: An 86-year-old female with history of pneumonia, follow-up. COMPARISON: 02/02/2017. FINDINGS: Postoperative midline sternotomy and valvular replacement. Stable biapical pleural thickening. Res olution of the previously noted left lower lobe pneumonia with resolution of the left pleural effusi on. Stable persistent pleural and parenchymal opacity changes in the right base. Hyperinflation an d chronic lung changes. IMPRESSION: Resolution of the previously noted left lower lobe pneumonia and pleural effusion. Stable chronic c hanges in the apices and right base. No new pneumonia or other acute process. POS: KAYLEN
== END 2017-02-17 13:57 | disposition home or self-care (01) ==
LOC: MADLAB 13:56
PROVIDERS: ATTEND Family Medicine
DX: I10 Essential (primary) hypertension (principal); J84.9 Interstitial pulmonary disease, unspecified; J45.901 Unspecified asthma with (acute) exacerbation; J91.8 Pleural effusion in other conditions classified elsewhere
CPT/HCPCS: 36415; 71020; 80053; 85027

== ENCOUNTER 2017-12-15 07:35 | Outpatient (CLI) | payer MEDICARE ==
[2017-12-15 08:28] LABS: #Basophils 0.1 thou/uL (0.0-0.2); #Eosinphils 0.6 thou/uL (0.0-0.7); #Lymphocytes 1.5 thou/uL (1.20-3.40); #Monocytes 0.5 thou/uL (0.11-0.59); #Neutrophils 3.8 thou/uL (1.40-6.50); %Eosinophils 9.8 % (0.0-10.0); %Lymphocytes 22.7 % (21.0-51.0); %Neutrophils 58.5 % (42.0-75.0); Hemoglobin 12.2 g/dL (12.0-16.0); Mean Corpuscular HGB CONC 32.7 g/dL (32.0-36.0); Mean Corpuscular Hemoglobin 27.7 pg (27.0-31.0); Mean Corpuscular Volume 84.7 fL (78.0-98.0); Platelet Count 166 thou/uL (130-400); RBC Distribution Width 12.4 % (11.5-14.5); Red Blood Cell (RBC) Count 4.42 mill/uL (4.20-5.40); White Blood Cell (WBC) Count 6.4 thou/uL (4.8-10.8)
[2017-12-15 08:43] LABS: ALT (SGPT) 13 U/L (8-55); AST (SGOT) 17 U/L (5-34); Albumin 3.8 g/dL (3.4-4.8); Alkaline Phosphatase 47 U/L (40-150); Anion Gap 12 mmol/L (10-20); BUN (Urea Nitrogen) 14 mg/dL (9.8-20.1); Bilirubin, Total 0.7 mg/dL (0.2-1.2); Calc. Creatinine Clearance 0 mL/min (70-130); Carbon Dioxide 25 mmol/L (23-31); Cardiac Risk 4.9 (Less than 4.5); Chloride 107 mmol/L (98-107); Cholesterol 235 mg/dl (< 200 Desired); Estimated GFR-MDRD 71; Globulin 2.8 g/dL (2.4-3.5); Glucose 90 mg/dL (83-110); HDL Cholesterol 48 mg/dL (>60 Neg Risk); LDL Cholesterol, Calculated 151 mg/dL; Potassium 4.2 mmol/L (3.5-5.1); Protein, Total 6.6 g/dL (6.0-8.3); Sodium 140 mmol/L (136-145); Triglycerides 180 mg/dL (Less than 150)
== END 2017-12-15 07:36 ==
LOC: MADLABBHPM 07:35
PROVIDERS: ATTEND Family Medicine
DX: E78.5 Hyperlipidemia, unspecified (principal); I10 Essential (primary) hypertension
CPT/HCPCS: 36415; 80053; 80061; 85025

== ENCOUNTER 2019-02-18 10:29 | Outpatient (CLI) | payer MEDICARE ==
--- NOTE | 2019-02-18 10:51 | RAD ---
XR Ankle Lt 3 View STANDARD HISTORY: Left ankle pain FINDINGS: No fracture or dislocation is identified. The ankle mortise is maintained. A tiny plantar calcaneal s pur is present.
--- NOTE | 2019-02-18 10:56 | RAD ---
XR Foot Lt 3 View STANDARD HISTORY: Left foot pain FINDINGS: No fracture or dislocation is identified. A plantar calcaneal spur is present. There are mild degener ative changes.
== END 2019-02-18 10:30 | disposition home or self-care (01) ==
LOC: MADRAD 10:29
PROVIDERS: ATTEND Family Medicine
DX: M25.572 Pain in left ankle and joints of left foot (principal); M79.672 Pain in left foot

== ENCOUNTER 2019-10-04 10:20 | Outpatient (CLI) | payer MEDICARE ==
--- NOTE | 2019-10-04 11:02 | RAD ---
2 VIEWS CHEST: Date: 10/04/2019 PROVIDED CLINICAL HISTORY: Dyspnea. FINDINGS: Comparison with 02/17/2017. Cardiac and mediastinal silhouette is unchanged in appearance. Chronic obstructive changes are redemo nstrated. Persistent biapical pleural parenchymal opacity more conspicuous right lung apex, similar t o prior. Calcified granulomata are again seen. No focal consolidation, pleural fluid, or pneumothorax apparent. Median sternotomy changes and prosthetic cardiac valve are again seen. IMPRESSION: Stable radiographic appearance of the chest. POS: C
== END 2019-10-04 10:21 | disposition home or self-care (01) ==
LOC: MADRAD 10:20
PROVIDERS: ATTEND Optometrist
DX: R06.09 Other forms of dyspnea (principal)
CPT/HCPCS: 71046

== ENCOUNTER 2021-07-16 08:32 | Inpatient (IN) | payer MEDICARE ==
[2021-07-16] MEDS ORDERED: Sodium Chloride 0.9% 100 ML BAG ONE (08:51)
[2021-07-16] MEDS ORDERED: Sodium Chloride 0.9% 2,000 ML ONE (09:01)
[2021-07-16 09:02] LABS: #Basophils 0.1 thou/uL (0.0-0.2); #Eosinphils 0.1 thou/uL (0.0-0.7); #Lymphocytes 0.6 thou/uL (1.20-3.40); #Monocytes 0.8 thou/uL (0.11-0.59); %Basophils 1.1 % (0.0-1.0); %Eosinophils 0.5 % (0.0-10.0); %Lymphocytes 4.4 % (21.0-51.0); %Monocytes 6.5 % (0.0-10.0); %Neutrophils 87.5 % (42.0-75.0); Hemoglobin 8.9 g/dL (12.0-16.0); Mean Corpuscular HGB CONC 32.5 g/dL (32.0-36.0); Mean Corpuscular Hemoglobin 28.4 pg (27.0-31.0); Mean Corpuscular Volume 87.3 fL (78.0-98.0); Mean Platelet Volume 8.6 fL (7.4-10.4); Platelet Count 155 thou/uL (130-400); RBC Distribution Width 13.9 % (11.5-14.5); Red Blood Cell (RBC) Count 3.14 mill/uL (4.20-5.40); White Blood Cell (WBC) Count 12.5 thou/uL (4.8-10.8)
[2021-07-16] MEDS ORDERED: Sodium Chloride 0.9% 100 ML ONE (09:14)
[2021-07-16] MEDS ORDERED: Acetaminophen 500 MG TAB ONE (09:14)
[2021-07-16] MEDS ORDERED: cefTRIAXone\\ROCEPHIN 2 GM VIAL ONE ×2 (09:14→09:15)
[2021-07-16 09:25] LABS: ALT (SGPT) 15 U/L (8-55); AST (SGOT) 19 U/L (5-34); Albumin 3.8 g/dL (3.4-4.8); Alkaline Phosphatase 45 U/L (40-110); Anion Gap 14 mmol/L (10-20); BUN (Urea Nitrogen) 20 mg/dL (9.8-20.1); Bilirubin, Total 1.6 mg/dL (0.2-1.2); Calc. Creatinine Clearance 0 mL/min (70-130); Calcium 8.5 mg/dL (7.8-10.44); Carbon Dioxide 21 mmol/L (23-31); Chloride 108 mmol/L (98-107); Globulin 2.5 g/dL (2.4-3.5); Glucose 127 mg/dL (83-110); Lipase 16 U/L (8-78); Protein, Total 6.3 g/dL (5.8-8.1); Sodium 139 mmol/L (136-145)
[2021-07-16] MEDS ORDERED: Azithromycin 500 MG VIAL ONE (09:36)
[2021-07-16] MEDS ORDERED: Sodium Chloride 0.9% 250 ML 250 ML ONE (09:36)
[2021-07-16 10:17] LABS: SARS-CoV-2 NAA Rapid Test Not Detected (NotDetected)
[2021-07-16 10:48] LABS: Bilirubin Negative (Negative); Blood, Urine Trace (Negative); Clarity Clear (Clear); Glucose, Urine (Dipstick) Negative (Negative); Ketone, Urine 40 mg/dL (Negative); Leukocyte Negative (Negative); Nitrite Negative (Negative); Protein, Urine (Dipstick) Negative (Neg-Trace); Urobilinogen 0.2 mg/dL (Less than 2)
[2021-07-16 11:02] LABS: Bacteria/HPF Rare-Few HPF (None Seen); RBC/HPF 0-3 HPF (0-3); Squamous Epithelial 0-3 HPF (0-3)
[2021-07-16] MEDS ORDERED: Iopamidol 370 76% 125 ML VIAL FS ONE (13:32)
[2021-07-16 15:16] VITALS: BMI 20.5
[2021-07-16] MEDS ORDERED: Acetaminophen 325 MG TAB PO PRN (15:30)
[2021-07-16] MEDS ORDERED: Bisacodyl 5 MG TAB PO PRN (15:30)
[2021-07-16] MEDS ORDERED: Ondansetron ODT 4 MG TAB PO PRN (15:30)
[2021-07-16] MEDS ORDERED: FLU VACC QS2021-22(65YR UP)/PF 240 MCG/0.7 ML SYRINGE IM ONE (15:45)
[2021-07-16] MEDS: Famotidine/PF 20 mg/2ml Vial SLOW IVP SCH (20:09)
[2021-07-16] MEDS: Metoprolol Tartrate 50 MG TAB PO SCH (20:09)
[2021-07-17] MEDS: Levothyroxine Sodium 100 MCG TAB PO SCH (05:05)
[2021-07-17 05:29] LABS: #Basophils 0.1 thou/uL (0.0-0.2); #Eosinphils 0.1 thou/uL (0.0-0.7); #Lymphocytes 0.7 thou/uL (1.20-3.40); #Monocytes 0.6 thou/uL (0.11-0.59); #Neutrophils 6.9 thou/uL (1.40-6.50); %Basophils 0.8 % (0.0-1.0); %Eosinophils 1.3 % (0.0-10.0); %Lymphocytes 8.6 % (21.0-51.0); %Monocytes 6.7 % (0.0-10.0); %Neutrophils 82.5 % (42.0-75.0); Hemoglobin 7.5 g/dL (12.0-16.0); Mean Corpuscular HGB CONC 32.2 g/dL (32.0-36.0); Mean Corpuscular Hemoglobin 28.7 pg (27.0-31.0); Mean Corpuscular Volume 88.9 fL (78.0-98.0); Mean Platelet Volume 8.3 fL (7.4-10.4); Platelet Count 143 thou/uL (130-400); RBC Distribution Width 14.1 % (11.5-14.5); Red Blood Cell (RBC) Count 2.61 mill/uL (4.20-5.40); White Blood Cell (WBC) Count 8.4 thou/uL (4.8-10.8)
[2021-07-17 05:44] LABS: Anion Gap 12 mmol/L (10-20); BUN (Urea Nitrogen) 16 mg/dL (9.8-20.1); Calc. Creatinine Clearance 48 mL/min (70-130); Calcium 8.1 mg/dL (7.8-10.44); Carbon Dioxide 20 mmol/L (23-31); Chloride 113 mmol/L (98-107); Glucose 103 mg/dL (83-110); Potassium 3.5 mmol/L (3.5-5.1); Sodium 141 mmol/L (136-145)
[2021-07-17] MEDS: Azithromycin 250 MG TAB PO SCH (08:36)
[2021-07-17] MEDS: Amlodipine 5 MG TAB PO SCH (08:36)
[2021-07-17] MEDS: Metoprolol Tartrate 50 MG TAB PO SCH ×2 (08:37→21:19)
[2021-07-17] MEDS: Lisinopril 20 MG TAB PO SCH (08:37)
[2021-07-17] MEDS: Rosuvastatin 10 MG TAB PO SCH (08:38)
[2021-07-17] MEDS: Famotidine/PF 20 mg/2ml Vial SLOW IVP SCH ×2 (08:38→21:17)
[2021-07-17] MEDS: cefTRIAXone\\ROCEPHIN 2 GM in Sodium Chloride 0.9% 100 ML IVPB SCH (08:38)
[2021-07-17] MEDS: Mometasone/Formoterol 60 PUFF AER INH SCH ×2 (08:41→21:18)
[2021-07-17] MEDS: Calcium Carbonate 500 MG ChewTAB PO PRN (13:57)
[2021-07-17 14:42] LABS: Iron Less than 8 ug/dL (50-170); Iron Binding Capacity, Total 244 mcg/dL (265-497)
[2021-07-18 05:28] LABS: #Basophils 0.1 thou/uL (0.0-0.2); #Eosinphils 0.2 thou/uL (0.0-0.7); #Lymphocytes 0.5 thou/uL (1.20-3.40); #Monocytes 0.6 thou/uL (0.11-0.59); #Neutrophils 5.1 thou/uL (1.40-6.50); %Basophils 1.1 % (0.0-1.0); %Eosinophils 3.1 % (0.0-10.0); %Lymphocytes 7.2 % (21.0-51.0); %Monocytes 9.8 % (0.0-10.0); %Neutrophils 78.8 % (42.0-75.0); Hemoglobin 6.8 g/dL (12.0-16.0); Mean Corpuscular HGB CONC 32.6 g/dL (32.0-36.0); Mean Corpuscular Hemoglobin 28.5 pg (27.0-31.0); Mean Corpuscular Volume 87.5 fL (78.0-98.0); Mean Platelet Volume 7.5 fL (7.4-10.4); Platelet Count 123 thou/uL (130-400); RBC Distribution Width 13.7 % (11.5-14.5); Red Blood Cell (RBC) Count 2.37 mill/uL (4.20-5.40); White Blood Cell (WBC) Count 6.5 thou/uL (4.8-10.8)
[2021-07-18] MEDS: Levothyroxine Sodium 100 MCG TAB PO SCH (05:34)
[2021-07-18 05:39] LABS: Anion Gap 12 mmol/L (10-20); BUN (Urea Nitrogen) 15 mg/dL (9.8-20.1); Calc. Creatinine Clearance 40 mL/min (70-130); Calcium 8.1 mg/dL (7.8-10.44); Carbon Dioxide 21 mmol/L (23-31); Chloride 113 mmol/L (98-107); Glucose 111 mg/dL (83-110); Potassium 3.7 mmol/L (3.5-5.1); Sodium 142 mmol/L (136-145)
[2021-07-18] MEDS: Amlodipine 5 MG TAB PO SCH (09:00)
[2021-07-18] MEDS: Lisinopril 20 MG TAB PO SCH (09:00)
[2021-07-18] MEDS: cefTRIAXone\\ROCEPHIN 2 GM in Sodium Chloride 0.9% 100 ML IVPB SCH (09:01)
[2021-07-18] MEDS: Rosuvastatin 10 MG TAB PO SCH (09:02)
[2021-07-18] MEDS: Azithromycin 250 MG TAB PO SCH (09:03)
[2021-07-18] MEDS: Famotidine/PF 20 mg/2ml Vial SLOW IVP SCH ×2 (09:03→20:51)
[2021-07-18] MEDS: Mometasone/Formoterol 60 PUFF AER INH SCH ×2 (11:04→20:52)
[2021-07-18] MEDS: Metoprolol Tartrate 50 MG TAB PO SCH ×2 (11:10→20:52)
[2021-07-18 16:44] LABS: Hemoglobin 8.9 g/dL (12.0-16.0); Platelet Count 177 thou/uL (130-400)
[2021-07-19 05:15] LABS: #Basophils 0.1 thou/uL (0.0-0.2); #Eosinphils 0.4 thou/uL (0.0-0.7); #Lymphocytes 0.6 thou/uL (1.20-3.40); #Monocytes 0.7 thou/uL (0.11-0.59); #Neutrophils 5.6 thou/uL (1.40-6.50); %Basophils 1.1 % (0.0-1.0); %Eosinophils 5.9 % (0.0-10.0); %Lymphocytes 7.8 % (21.0-51.0); %Monocytes 9.6 % (0.0-10.0); %Neutrophils 75.6 % (42.0-75.0); Hemoglobin 8.1 g/dL (12.0-16.0); Mean Corpuscular HGB CONC 32.8 g/dL (32.0-36.0); Mean Corpuscular Hemoglobin 27.4 pg (27.0-31.0); Mean Corpuscular Volume 83.3 fL (78.0-98.0); Mean Platelet Volume 7.8 fL (7.4-10.4); Platelet Count 143 thou/uL (130-400); Red Blood Cell (RBC) Count 2.97 mill/uL (4.20-5.40); White Blood Cell (WBC) Count 7.4 thou/uL (4.8-10.8)
[2021-07-19] MEDS: Levothyroxine Sodium 100 MCG TAB PO SCH (05:31)
[2021-07-19] MEDS: Famotidine/PF 20 mg/2ml Vial SLOW IVP SCH ×2 (08:43→20:52)
[2021-07-19] MEDS: Mometasone/Formoterol 60 PUFF AER INH SCH ×2 (08:45→20:51)
[2021-07-19] MEDS: cefTRIAXone\\ROCEPHIN 2 GM in Sodium Chloride 0.9% 100 ML IVPB SCH (08:45)
[2021-07-19] MEDS: Amlodipine 5 MG TAB PO SCH (08:46)
[2021-07-19] MEDS: Lisinopril 20 MG TAB PO SCH (08:46)
[2021-07-19] MEDS: Metoprolol Tartrate 50 MG TAB PO SCH ×2 (08:46→20:52)
[2021-07-19] MEDS: Azithromycin 250 MG TAB PO SCH (08:46)
[2021-07-19] MEDS: Rosuvastatin 10 MG TAB PO SCH (08:46)
[2021-07-19] MEDS: Calcium Carbonate 500 MG ChewTAB PO PRN (18:21)
[2021-07-20] MEDS: Levothyroxine Sodium 100 MCG TAB PO SCH (05:56)
[2021-07-20] MEDS: Amlodipine 5 MG TAB PO SCH (08:21)
[2021-07-20] MEDS: Azithromycin 250 MG TAB PO SCH (08:22)
[2021-07-20] MEDS: Metoprolol Tartrate 50 MG TAB PO SCH (08:23)
[2021-07-20] MEDS: Lisinopril 20 MG TAB PO SCH (08:23)
[2021-07-20] MEDS: Rosuvastatin 10 MG TAB PO SCH (08:24)
[2021-07-20] MEDS: Mometasone/Formoterol 60 PUFF AER INH SCH (08:54)
[2021-07-20 11:54] VITALS: BP 117/63; TEMP 98.8
== END 2021-07-20 14:30 | disposition home or self-care (01) | DRG 194 ==
LOC: MADERS 08:32 → MADMS 14:39
PROVIDERS: ADMIT Family Medicine; ATTEND Family Medicine
PROC: 30233N1 Transfusion of Nonautologous Red Blood Cells into Peripheral Vein, Percutaneous Approach (ICD-10-PCS; principal; 2021-07-18)
DX: J18.9 Pneumonia, unspecified organism (principal); J44.0 Chronic obstructive pulmonary disease with (acute) lower respiratory infection; Z20.822 Contact with and (suspected) exposure to COVID-19; I10 Essential (primary) hypertension; D64.9 Anemia, unspecified; E78.5 Hyperlipidemia, unspecified; E03.9 Hypothyroidism, unspecified; N28.89 Other specified disorders of kidney and ureter; Z60.2 Problems related to living alone; M10.9 Gout, unspecified; Z95.2 Presence of prosthetic heart valve; Z88.0 Allergy status to penicillin; Z90.710 Acquired absence of both cervix and uterus; Z90.722 Acquired absence of ovaries, bilateral; Z87.01 Personal history of pneumonia (recurrent); Z79.891 Long term (current) use of opiate analgesic; Z79.82 Long term (current) use of aspirin; Z79.890 Hormone replacement therapy; Z79.899 Other long term (current) drug therapy; Z88.8 Allergy status to other drugs, medicaments and biological substances; Z90.89 Acquired absence of other organs
CPT/HCPCS: 0240U; 36415; 36430; 71045; 71275; 80048; 80053; 81003; 81015; 82274; 82728; 83540; 83550; 83605; 83690; 83880; 84443; 84484; 85025; 85046; 85379; 86850; 86900; 86901; 87040; 87086; 93005; 96365; 96367; J0456; J0696; J3490; J7050; J7620; P9016; Q9967; S0028

== ENCOUNTER 2022-07-24 10:17 | Outpatient (CLI) | payer MEDICARE | END 2022-07-24 10:18 | disposition home or self-care (01) | LOC: MADRAD 10:17 | PROVIDERS: ATTEND Internal Medicine | DX: J45.50 Severe persistent asthma, uncomplicated (principal); J32.9 Chronic sinusitis, unspecified | CPT/HCPCS: 70220; 71046 ==